=== PATIENT | female | born 2000 | race African-American/Black ===

== ENCOUNTER 2024-01-13 06:45 | Emergency (ER) | payer OTHER, MEDICAID, SELFPAY ==
[2024-01-13 06:45] VITALS: BP 125/73; PULSE 111; TEMP 36.6; O2SAT 99; BMI 21.6
[2024-01-13] MEDS: IBUPROFEN 600 MG TABLET PO (07:27)
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
== END 2024-01-13 08:26 | disposition home or self-care (01) ==
PROVIDERS: Emergency Provider Emergency Medicine
DX: S40.022A Contusion of left upper arm, initial encounter (principal); V43.52XA Car driver injured in collision with other type car in traffic accident, initial encounter
CPT/HCPCS: 72040; 73030; 73090; 99284